=== PATIENT | female | born 1990 | race Caucasian/White ===

== ENCOUNTER 2020-08-08 11:55 | Day surgery (SDC) | payer BC ==
[2020-08-07 14:15] LABS: Absolute Lymphocytes (CBC) 2.2 K/uL (0.7-4.9); Basophils % 0.3 % (0-1.3); Hematocrit 40.4 % (36.0-45.0); RBC Red Blood Cell Count 5.04 M/uL (3.86-4.86)
--- OUTSIDE RECORDS SUMMARY | 2020-08-08 12:06 | XMS REPORT | Continuity of Care Document ---
:1990 Author Organization [facility] t Address [address] [place] [address] [address]. [address] [place] [address] Care Team Providers Name Role Phone Lab, Elan Saab I Attending Clinician Unavailable Problems This patient has no known problems. Allergies, Adverse Reactions, Alerts This patient has no known allergies or adverse reactions. Medications This patient has no known medications. Procedures This patient has no known procedures. Encounters Start End Encounter Admission Attending Care Care Encounter Source Date/Time Date/Time Type Type Clinicians Facility Department ID 2020-04-12 2020-04-12 Laboratory Lab, [facility] [id number] 10:08:37 10:28:37 Only Fam Pob I [facility] [id number] [place] [id number] [place] [phone] nal 044 [address] One Results This patient has no known results.
[2020-08-08 12:19] LABS: Specific Gravity >= 1.030 (1.005-1.030)
[2020-08-08] MEDS ORDERED: Ringers Lactate 1,000 ML IV ONE ×2 (12:30→18:11)
[2020-08-08] MEDS ORDERED: SCOPOLAMINE HYDROBROMIDE PATCH TD ONE ×2 (12:30→12:47)
[2020-08-08] MEDS: CEFAZOLIN/SWI 1gm 1 GM/10 ML SYR ONE ×3 (13:27→16:40)
[2020-08-08] MEDS: CEFAZOLIN/SWI 2gm 2 GM/20 ML SYR ONE ×3 (13:27→16:40)
[2020-08-08] MEDS ORDERED: IBUPROFEN 400 MG TAB ONE (14:40)
[2020-08-08] MEDS ORDERED: ONDANSETRON 4 MG/2 ML VIAL ONE ×3 (14:40→19:07)
[2020-08-08] MEDS ORDERED: propofoL 200 MG/20 ML VIAL IV ONE (15:54)
[2020-08-08] MEDS ORDERED: LIDOCAINE 2% MPF 5 ML VIAL ONE (15:54)
[2020-08-08] MEDS ORDERED: FENTANYL CITR 100 MCG/2 ML ONE (15:56)
[2020-08-08] MEDS ORDERED: ROCURONIUM 50 MG/5 ML VIAL IV ONE ×2 (15:56→18:17)
[2020-08-08] MEDS ORDERED: MIDAZOLAM HCL 2 MG/2 ML INJ ONE (15:57)
[2020-08-08] MEDS ORDERED: BUPIVACAINE 0.25% PF 30 ML VIAL ONE (16:15)
[2020-08-08] MEDS ORDERED: dexAMETHasone 4 MG/ML VIAL ONE (17:04)
[2020-08-08] MEDS ORDERED: KETOROLAC 30 MG/ML INJ ONE (17:05)
[2020-08-08] MEDS ORDERED: GLYCOPYRROLATE 0.2 MG/ML SYR ONE ×3 (17:06→17:26)
[2020-08-08] MEDS ORDERED: NEOSTIGMINE 1 MG/ML -5 ML ONE (17:26)
[2020-08-08] MEDS ORDERED: MORPHINE 10 MG/ML VIAL ONE (18:18)
[2020-08-08] MEDS ORDERED: HYDROMORPHONE HCL 1 MG/ML INJ ONE (19:06)
[2020-08-08] MEDS ORDERED: CODEINE 30MG/APAP 300MG TAB ONE (19:59)
[2020-08-08 20:22] VITALS: BP 106/60; TEMP 97.2; O2SAT 99
--- NOTE | 2020-08-10 00:07 | OP ---
Date of Procedure: 08/08/2020 Surgeon: Marcia Can MD Bowling Ball Finisher: Gertrudis Torres. Preoperative Diagnoses: Pelvic pain, left lower quadrant pain, left adnexal mass. Postoperative Diagnoses: Pelvic pain, left large hematosalpinx with possible necrosis and sigmoid ad hesions. Procedures Performed: Diagnostic laparoscopy, left salpingectomy, extensive lysis of sigmoid adhesio ns which took more than 50% of the case in diagnostic hysteroscopy. Anesthesia: General endotracheal. Estimated Blood Loss: Minimal. Specimens: Left tube. Complications: None. Drains: The patient's condition is stable. Findings: On diagnostic hysteroscopy, uterus was anteflexed, the cavity unremarkable. On laparoscop y, there was a necrotic and dilated distal left tube with hematosalpinx adhesions to the sigmoid colo n as well as to the left lateral wall and the ovary. The adhesions to the ovary were removed. The a dhesions of the sigmoid were also detached. Once the tube was discerned and was completely well sepa rated, it was all removed and sent for permanent pathology. Both ovaries were completely unremarkabl e. Right tube normal. Uterus unremarkable. No evidence of any endometriosis. The patient is a 30-year-old female, presented with pelvic pain, on an IUD. Relatively, had intermit tent pain which was mild and tolerable since the insertion 6 months ago; however, suddenly on July 19 she presented to the office with pelvic pain. She was treated for PID after removal of the IUD with antibiotics. Two weeks later on when she was seen in the office by my nurse practitioner, her pain was still significant. Transvaginal ultrasound was performed. The left ovary appeared to b e slightly larger, but no evidence of any mass, no evidence of any tubo-ovarian abscess. So she was seen back in a day and a CT scan was ordered and this showed a possible left adnexal mass over 7.7 cm. So, given the patient's pain although the pain has significantly gotten better, she sti ll had enough pain to have some peritoneal signs. No fever. White cell count was normal. BMP was n ormal. So, the patient was given the results on the same dose for CT and was advised that she should call for any acute increase in pain. All the torsion precautions were given and then scheduled for laparoscopy on Friday. She was electively brought into the hospital on that day. Urine test was negative. She wa s taken back to the OR. Ancef 3 g were given. SCDs were placed in supine. The patient was placed i n a supine fashion on the operating table and general anesthesia was given, placed in a dorsal lithot lucila position using Simba stirrups. Arms were tucked by the side. After time-out was done, abdomen, vulva, vagina, and perineum were prepped and draped in a sterile fashion. Woodson was placed to drain the bladder. Speculum was placed to expose the cervix and difficulty to insert uterine manipulator, so the sponge on a stick was used here. 1 cm infraumbilical incision was made with a scalpel using the open laparoscopy technique. Fascia wa s incised and tagged with 0 Vicryl sutures. Peritoneum was entered bluntly. S-retractor was placed. After insufflating the peritoneal cavity with CO2, the patient was placed in Trendelenburg. Upper abdominal surface was completely unremarkable. A 5 mm left lower quadrant and 5 mm suprapubic ports were placed first and in the right lower quadrant 5 port was placed as well. On entry, there was a s wollen left adnexal mass with evidence of chronic venous stasis adhered to the omentum and the sigmoi d colon. Once the ports were all placed, then the omental adhesions were taken down with gentle manoj p and blunt dissection with the tip of the suction as well as graspers. Once this was done, then the adhesions of the sigmoid colon were seen all the way from the natural attachment all the way down to the entire upper half of the pelvis in the lateral sidewall. There were no discernible ovaries seen , appeared to be a large tuboovarian mass. However, after systematic dissection and separation of th e epiploica of the colon and the sigmoid colon itself from the sidewall at the level of the ureter at the pelvic brim, all these were gently. The lateral wall was opened up by opening up the peritoneum lateral to the tube. Once this dissection was done and I was able to get up to the area b etween the round ligament and the tube, then the tube was isolated, then on the medial aspect as the tubal adhesions were taken down from the sigmoid, the fimbriated end was socked in and found within a large swollen necrotic tube. So, at this point, once I got the tube from its inferior adh esions, then the ovary was seen. Once the surface of the ovary was visualized and appeared to be nor mal, then stayed on the surface of the ovary and shaved the tube off along with the necrotic material , then the rest of the tube was dissected off from the ovary. The ovary appeared to be completely in tact. So, the fimbriated end from the lateral broad ligament was and cut out with the help of the LigaSure and the distal half of the tube was removed. The proximal half of the left tube christy eared to be completely dilated and normal-appearing; however, this was also removed due to the concer n that this could have scar tissue in pathology and could be a potential site for future ectopic, so this was removed as well. All the tissues were picked up and placed in an EndoCatch bag and the spec imen bag was set aside. Rest of the laparoscopy was completed. Good survey of the pelvic cavity. N o endometriosis. Tube and ovary on the right side normal. No other abnormal areas were seen and the sigmoid colon did not appear to have any diverticula. Once the tube was removed, the entire sidewal l appeared to be clean. Thorough suction evacuation was done after irrigation with copious amount of normal saline. Once this was done, there was good hemostasis. Then, the trocars were removed and g as was desufflated. The specimen was extracted through the umbilical trocar site after removing the trocar. Then, fascia at the umbilicus was closed with the help of 0 Vicryl sutures tied to each othe r and they were placed for tagging the edges and then all the rest of the fascial incisions were inje cted with 0.25% Marcaine at the beginning and at the end of the case. All the skin incision was clos ed with the help of interrupted 4-0 Vicryl sutures. Then went down below, wanted to make sure that t here was no evidence of any abnormal endometrial tissue, so diagnostic hysteroscopy with a SlimLine h ysteroscope was done by entering the cervical canal and under direct visualization, the uterine cavit y was entered. Normal saline was used for distention medium. No evidence of any abnormal abnormalit ies here and both cornual ends appeared to be normal. Scope was removed. All the instruments were r emoved. Woodson was removed. Instrument, needle, and sponge counts were correct at the end of the lillian e. The patient tolerated the procedure well. She was recovered from anesthesia and taken to PACU in stable condition. So, at the end of the case, there were periovarian adhesions that were taken down as well as the tube. Estimated Blood Loss: Minimal. Urine Output: More than 100. MARTINE/MOHAN Voice ID: [id number] Report ID: [id number]
== END 2020-08-08 20:20 | disposition home or self-care (01) ==
LOC: OR 11:55
PROVIDERS: ATTEND Obstetrics & Gynecology
PROC: 0UN14ZZ Release Left Ovary, Percutaneous Endoscopic Approach (ICD-10-PCS; 2020-08-08)
PROC: 0UT64ZZ Resection of Left Fallopian Tube, Percutaneous Endoscopic Approach (ICD-10-PCS; 2020-08-08)
PROC: 0UJD8ZZ Inspection of Uterus and Cervix, Via Natural or Artificial Opening Endoscopic (ICD-10-PCS; 2020-08-08)
PROC: 0DNN4ZZ Release Sigmoid Colon, Percutaneous Endoscopic Approach (ICD-10-PCS; principal; 2020-08-08 13:30)
DX: N83.292 Other ovarian cyst, left side (principal); N73.6 Female pelvic peritoneal adhesions (postinfective); I10 Essential (primary) hypertension; F17.200 Nicotine dependence, unspecified, uncomplicated; Z20.828 Contact with and (suspected) exposure to other viral communicable diseases
CPT/HCPCS: 44180; 58660; 58661; 58555; 85025; 36415; 86900; 86850; 81025; 86901; 88305; U0002; J2704; J1100; J2250; J3010; J1170; J2710; J0690 ×2; J7120 ×2; J2405 ×3

== ENCOUNTER 2021-04-14 13:50 | Emergency (ER) | payer BC ==
[2021-04-14 15:40] LABS: Urine Blood Negative (Negative); Urine Glucose Negative (Negative); Urine Protein Trace (Negative); Urine Specific Gravity 1.025 (1.005-1.030); Urine pH 6.5 (5.0-7.0)
--- OUTSIDE RECORDS SUMMARY | 2021-04-14 15:42 | XMS REPORT | Continuity of Care Document ---
:1990 Author Organization [facility] t Address [address] [place] [address] [address]. [address] [place] [address] Care Team Providers Name Role Phone Lab, Elan Pob I Attending Clinician Unavailable Problems This patient has no known problems. Allergies, Adverse Reactions, Alerts This patient has no known allergies or adverse reactions. Medications This patient has no known medications. Procedures This patient has no known procedures. Encounters Start End Encounter Admission Attending Care Care Encounter Source Date/Time Date/Time Type Type Clinicians Facility Department ID 2020-04-12 2020-04-12 Laboratory Lab, [facility] [id number] 10:08:37 10:28:37 Only Fam Pob I [facility] [id number] [place] [id number] [place] [phone] nal 044 [address] One Results This patient has no known results.
[2021-04-14 16:25] LABS: Urine Specific Gravity/Preg 1.025 (1.005-1.030)
[2021-04-14] MEDS ORDERED: dexAMETHasone 10 MG/ML VIAL ONE (17:09)
[2021-04-14] MEDS ORDERED: KETOROLAC 30 MG/ML INJ ONE (17:10)
--- NOTE | 2021-04-14 18:32 | RAD REPORT ---
EXAM DESCRIPTION: RAD - Lumbar Spine 3 Views - 04/14/2021 5:52 pm CLINICAL HISTORY: fall Radiculopathy COMPARISON: <Comparisons> FINDINGS: Vertebral body heights appear maintained. No compression fracture noted. Disc spaces are m aintained. Bilateral spondylolysis at L5-S1 with mild anterolisthesis. IMPRESSION: Bilateral spondylolysis with mild anterolisthesis L5-S1.
--- NOTE | 2021-04-14 18:40 | EDPHYS ---
Physician Documentation [facility] Name: Arline Carcamo Age: 30 yrs Sex: Female : 1990 Arrival Date: 04/14/2021 Time: 13:52 Bed Hall20 Private MD: ED Physician Prakash Denney HPI: 04/14 16:53 This 30 yrs old Female presents to ER via Ambulatory with complaints of Back jmm Pain. 16:53 The patient presents with pain that is acute. Onset: The symptoms/episode jmm began/occurred acutely, last night. The pain radiates to the right hip. Associated signs and symptoms: Pertinent negatives: abdominal pain, chest pain, fever, headache, hematuria, incontinence, nausea, numbness, tingling, urinary retention, vomiting, weakness. Modifying factors: The patient symptoms are alleviated by nothing, the patient symptoms are aggravated by any movement. This is a 30 year old female with a history of anxiety, htn that presents to the ED with complaints of lower back pain which radiates to the right hip. States she was tackled covering home base while playing baseball. . 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 - Social history:: Smoking status: Patient reports the use of cigarette tobacco products, denies chronic smoking, but will smoke occasionally, Reported history of juuling and/or vaping. Patient uses alcohol, occasionally. ROS: 16:53 Constitutional: Negative for fever, chills, and weight loss, Cardiovascular: Negative jmm for chest pain, palpitations, and edema, Respiratory: Negative for shortness of breath, cough, wheezing, and pleuritic chest pain. 16:53 Back: Positive for pain with movement. 16:53 All other systems are negative. Exam: 16:53 Constitutional: This is a well developed, well nourished patient who is awake, alert, jmm and in no acute distress. Head/Face: atraumatic. Eyes: EOMI, no conjunctival erythema appreciated ENT: Moist Mucus Membranes Neck: Trachea midline, Supple Chest/axilla: Normal chest wall appearance and motion. Cardiovascular: Regular rate and rhythm. No edema appreciated Respiratory: Normal respirations, no respiratory distress appreciated Abdomen/GI: Non distended, soft 16:53 Skin: General appearance color normal MS/ Extremity: Moves all extremities, no obvious deformities appreciated, no edema noted to the lower extremities Neuro: Awake and alert, normal gait Psych: Behavior is normal, Mood is normal, Patient is cooperative and pleasant 16:53 Back: no midline tenderness appreciated, right sided lumbar back pain on palpation. Vital Signs: 14:37 BP 134 / 86; Pulse 69; Resp 20; Temp 98.5(O); Pulse Ox 100% on R/A; Weight 129.05 kg kg (M); Height 5 ft. 9 in. (175.26 cm) (R); Pain 9/10; 14:37 Body Mass Index 42.01 (129.05 kg, 175.26 cm) kg MDM: 16:46 Patient medically screened. [facility] 18:37 Data reviewed: vital signs, nurses notes. Counseling: I had a detailed discussion with noah the patient and/or guardian regarding: the historical points, exam findings, and any diagnostic results supporting the discharge/admit diagnosis, radiology results, the need for outpatient follow up, to return to the emergency department if symptoms worsen or persist or if there are any questions or concerns that arise at home. ED course: Most likely sciatica. I do not suspect cord compression or cauda equina. Patient advised to follow up with pcp and otherwise given strict return precautions. patient understood and agrees with the plan of care. . 04/14 15:39 Order name: Urine Dipstick-Ancillary; Complete Time: 16:51 EDMS 04/14 15:41 Order name: Urine --Ancillary (enter results); Complete Time: 16:51 eb 04/14 16:46 Order name: Lumbar Spine (3 Views) XRAY; Complete Time: 18:35 [facility] Administered Medications: 16:53 Drug: Ketorolac 30 mg Route: IM; Site: right deltoid; sv 17:25 Follow up: Response: No adverse reaction sv 16:53 Drug: Decadron (dexamethasone) 10 mg Route: IM; Site: left deltoid; sv 17:25 Follow up: Response: No adverse reaction sv 18:34 Drug: Valium (diazepam) 5 mg Route: PO; sv 19:12 Follow up: Response: No adverse reaction sv Disposition Summary: 04/14/21 18:39 Discharge Ordered Location: Home [facility] Condition: Stable [facility] Diagnosis - Sciatica [facility] Followup: [facility] - With: Private Physician - When: 2 - 3 days - Reason: Recheck today's complaints, Continuance of care, Re-evaluation by your physician Followup: [facility] - With: Michael Mac MD - When: 2 - 3 days - Reason: Recheck today's complaints, Continuance of care, Re-evaluation by your physician Followup: [facility] - With: Gómez Collado DO - When: 2 - 3 days - Reason: Recheck today's complaints, Continuance of care, Re-evaluation by your physician Followup: [facility] - With: Kamilla Polo MD - When: 2 - 3 days - Reason: Recheck today's complaints, Continuance of care, Re-evaluation by your physician Followup: [facility] - With: Yun Jackson DO - When: 2 - 3 days - Reason: Recheck today's complaints, Continuance of care, Re-evaluation by your physician Discharge Instructions: - Discharge Summary Sheet [facility] - Sciatica [facility] - Sciatica [facility] Forms: - Medication Reconciliation Form [facility] - Thank You Letter [facility] - Antibiotic Education [facility] - Prescription Opioid Use [facility] Prescriptions: - Ibuprofen 800 mg Oral Tablet - take 1 tablet by ORAL route every 8 hours As needed take with food; 30 tablet; [facility] Refills: 0, Product Selection Permitted - orphenadrine citrate 100 mg Oral Tablet Sustained Release - take 1 tablet by ORAL route 2 times per day As needed; 20 tablet; Refills: 0, [facility] Product Selection Permitted Addendum: 04/16/2021 13:43 Co-signature as Attending Physician, Prakash Denney MD I agree with the assessment and k dr plan of care. Signatures: Dispatcher [employer] Therese Hendrickson, RN RN Prakash Sun MD MD kdr Mickail, Joel, PA PA jmm Graham, Kristen, RN RN kg
--- NOTE | 2021-04-14 18:40 | ER ---
Nurse's Notes [facility] Name: Arline Carcamo Age: 30 yrs Sex: Female : 1990 Arrival Date: 04/14/2021 Time: 13:52 Bed Hall20 [facility] MD: Diagnosis: Sciatica Presentation: 04/14 14:37 Chief complaint: Patient states: Lower back pain, primarily on the right side. Pt was kg playing softball yesterday 04/13 and was hit on the legs and twisted her body. She denies falling or hitting head. Coronavirus screen: Client denies travel out of the [place] in the last 14 days. At this time, unable to obtain information related to travel outside the [place] At this time, the client does not indicate any symptoms associated with coronavirus-19. Ebola Screen: Patient negative for fever greater than or equal to 101.5 degrees Fahrenheit, and additional compatible Ebola Virus Disease symptoms Patient denies exposure to infectious person. Patient denies travel to an Ebola-affected area in the 21 days before illness onset. Initial Sepsis Screen: Does the patient meet any 2 criteria? No. Patient's initial sepsis screen is negative. Does the patient have a suspected source of infection? No. Patient's initial sepsis screen is negative. Risk Assessment: Do you want to hurt yourself or someone else? Patient reports no desire to harm self or others. Onset of symptoms was April 13, 2021 at 21:30. 14:37 Method Of Arrival: Ambulatory kg 14:37 Acuity: PAT 4 kg Triage Assessment: 14:40 General: Appears uncomfortable, Behavior is calm, cooperative, appropriate for age, kg quiet. Pain: Complains of pain in lumbar area, left low back and right low back. 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 - Social history:: Smoking status: Patient reports the use of cigarette tobacco products, denies chronic smoking, but will smoke occasionally, Reported history of juuling and/or vaping. Patient uses alcohol, occasionally. Screenin:45 Abuse screen: Denies threats or abuse. Denies injuries from another. Nutritional kg screening: No deficits noted. Tuberculosis screening: No symptoms or risk factors identified. Fall Risk None identified. No fall in past 12 months (0 pts). No secondary diagnosis (0 pts). No IV (0 pts). Ambulatory Aid- None/Bed Rest/Nurse Assist (0 pts). Gait- Normal/Bed Rest/Wheelchair (0 pts) Mental Status- Oriented to own ability (0 pts). Total Balderrama Fall Scale indicates No Risk (0-24 pts). Assessment: 16:53 General: Appears in no apparent distress. uncomfortable, well developed, Behavior is sv calm, cooperative, appropriate for age. Pain: Complains of pain in lumbar area Pain currently is 9 out of 10 on a pain scale. Neuro: Level of Consciousness is awake, alert, obeys commands, Oriented to person, place, time, situation, Gait is steady. Respiratory: Respiratory effort is even, unlabored. 19:11 Reassessment: Patient appears in no apparent distress at this time. No changes from sv previously documented assessment. Patient and/or family updated on plan of care and expected duration. Pain level reassessed. Patient is alert, oriented x 3, equal unlabored respirations, skin warm/dry/pink. Vital Signs: 14:37 BP 134 / 86; Pulse 69; Resp 20; Temp 98.5(O); Pulse Ox 100% on R/A; Weight 129.05 kg kg (M); Height 5 ft. 9 in. (175.26 cm) (R); Pain 9/10; 14:37 Body Mass Index 42.01 (129.05 kg, 175.26 cm) kg ED Course: 13:52 Patient arrived in ED. ds1 14:40 Triage completed. kg 14:45 Arm band placed on right wrist. kg 14:46 Patient has correct armband on for positive identification. kg 15:41 Urine collected: clean catch specimen, cloudy. mh5 16:00 Kal Cutler PA is PHCP. [facility] 16:00 Prakash Denney MD is Attending Physician. jmm 16:53 Awaiting for x-ray. sv 17:47 Lumbar Spine (3 Views) XRAY In Process Unspecified. EDMS 18:55 Michael Mac MD is Referral Physician. jmm 18:55 Gómez Collado DO is Referral Physician. jmm 18:55 Kamilla Polo MD is Referral Physician. jmm 18:56 Yun Jackson DO is Referral Physician. jmm 19:11 No provider procedures requiring assistance completed. Patient did not have IV access sv during this emergency room visit. Administered Medications: 16:53 Drug: Ketorolac 30 mg Route: IM; Site: right deltoid; sv 17:25 Follow up: Response: No adverse reaction sv 16:53 Drug: Decadron (dexamethasone) 10 mg Route: IM; Site: left deltoid; sv 17:25 Follow up: Response: No adverse reaction sv 18:34 Drug: Valium (diazepam) 5 mg Route: PO; sv 19:12 Follow up: Response: No adverse reaction sv Outcome: 18:39 Discharge ordered by MD. [facility] 19:11 Discharged to home ambulatory. sv 19:11 Condition: stable 19:11 Discharge instructions given to patient, Instructed on discharge instructions, follow up and referral plans. medication usage, Demonstrated understanding of instructions, follow-up care, medications, Prescriptions given X 2. 19:12 Patient left the ED. sv Signatures: Dispatcher [employer] Therese Hendrickson, RN RN Kal Cutler PA PA Margarita Corado ds1 Robyn Cota 5 Nedra Carlos RN RN kg
[2021-04-14] MEDS ORDERED: DIAZEPAM 5 MG TABLET ONE (18:53)
[2021-04-14 19:19] VITALS: BP 134/86; TEMP 98.5; O2SAT 100
== END 2021-04-14 19:12 | disposition home or self-care (01) ==
LOC: ER 13:50
DX: M54.30 Sciatica, unspecified side (principal); F41.9 Anxiety disorder, unspecified; I10 Essential (primary) hypertension; F17.210 Nicotine dependence, cigarettes, uncomplicated; Z88.0 Allergy status to penicillin
CPT/HCPCS: 81025; 81003; 72100; 96372; 99284; J1100

== ENCOUNTER 2022-08-12 10:08 | Emergency (ER) | payer BC ==
--- OUTSIDE RECORDS SUMMARY | 2022-08-12 10:13 | XMS REPORT | Continuity of Care Document ---
:1990 Author Organization [facility] t Address [address] [place] [address] Care Team Providers Name Role Phone Lab, [facility] Fam Pob I Attending Clinician Unavailable GABRIELE LR Attending Clinician Unavailable Payers Payer Name Policy Type Policy Number Effective Date Expiration Date S [facility] - [id number] 2019 00:00:00 OUT OF STATE Problems This patient has no known problems. Allergies, Adverse Reactions, Alerts Allergy Allergy Status Severity Reaction(s) Onset Inactive Treating Comm ents Source Name Type Date Date Clinician NO KNOWN Drug Active [facility] ALLERGIE [facility] Medications This patient has no known medications. Procedures This patient has no known procedures. Encounters Start End Encounter Admission Attending Care Care Encounter Source Date/Time Date/Time Type Type Clinicians Facility Department ID 2020-04-12 2020-04-12 Laboratory Lab, [facility] [id number] 10:08:37 10:28:37 Only Fam Pob I [facility] [id number] [place] [id number] [place] [phone] nal 044 [address] 2020-04-12 2020-04-12 Outpatient R ADELINE [facility] [id number] 10:20:00 10:20:00 GABRIELE quiroga [facility] Results This patient has no known results.
[2022-08-12 10:43] LABS: Urine Blood 2+ (Negative); Urine Glucose Negative (Negative); Urine Protein 2+ (Negative); Urine Specific Gravity 1.015 (1.005-1.030)
[2022-08-12 11:01] LABS: Urine Mucus Slight /HPF (None Seen); Urine RBC 21-50 /HPF (None Seen)
[2022-08-12 11:08] LABS: Urine Specific Gravity/Preg 1.015 (1.005-1.030)
--- NOTE | 2022-08-12 11:16 | RAD REPORT ---
EXAM DESCRIPTION: CT - Stone Protocol - 08/12/2022 11:01 am CLINICAL HISTORY: Abdominal pain. Flank pain COMPARISON: 2019 TECHNIQUE: Computed axial tomography of the abdomen pelvis was obtained without oral or IV contrast. Lack of IV and oral contrast limits evaluation of solid organs, appendix, bowel, and vessels. Zapata l reformatted images were obtained and reviewed. All CT scans are performed using dose optimization technique as appropriate and may include automated exposure control or mA/KV adjustment according to patient size. FINDINGS: A renal calculus is not seen. An ureteral calculus is not noted. A bladder calculus is not present. The liver, spleen, pancreas and adrenals appear grossly normal There is no evidence of diverticulitis. The appendix appears normal Slight anterior subluxation L5 on S1. Spondylolysis L5 Small umbilical hernia. No adnexal mass IMPRESSION: Negative for a genitourinary calculus
[2022-08-12] MEDS ORDERED: KETOROLAC 30 MG/ML INJ ONE (11:23)
[2022-08-12 11:26] LABS: Absolute Lymphocytes (CBC) 2.1 K/uL (0.7-4.9); Hematocrit 37.1 % (36.0-45.0); Lymphocytes % 14.9 % (15.3-44.8); MPV 8.1 fL (7.6-11.3); RBC Red Blood Cell Count 4.58 M/uL (3.86-4.86)
[2022-08-12 11:39] LABS: Potassium 3.7 mmol/L (3.5-5.1)
--- NOTE | 2022-08-12 11:45 | EDPHYS ---
Physician Documentation [facility] Name: Arline Carcamo Age: 32 yrs Sex: Female : 1990 Arrival Date: 08/12/2022 Time: 10:12 Bed 13 Private MD: ED Physician Prakash Denney HPI: 08/12 11:58 This 32 yrs old Female presents to ER via Ambulatory with complaints of Urinary Problem.kb 11:58 The patient presents with flank pain, on the left, urinary symptoms, frequency. Onset: kb The symptoms/episode began/occurred last night. Modifying factors: The symptoms are alleviated by nothing, the symptoms are aggravated by nothing. Associated signs and symptoms: Pertinent positives: urinary frequency. Severity of symptoms: At their worst the symptoms were mild, moderate, in the emergency department the symptoms are unchanged. The patient has not experienced similar symptoms in the past. The patient has not recently seen a physician. Pt reports urinary frequency, suprapubic discomfort and left flank pain that started last night. 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 - Social history:: Smoking status: Patient denies any tobacco usage or history of. ROS: 11:58 Constitutional: Negative for fever, chills, and weight loss. kb 11:58 Abdomen/GI: Positive for abdominal pain, of the suprapubic area. 11:58 : Positive for urinary symptoms, flank pain, urinary frequency. 11:58 All other systems are negative. Exam: 11:57 Constitutional: This is a well developed, well nourished patient who is awake, alert, kb and in no acute distress. Head/Face: Normocephalic, atraumatic. ENT: Moist Mucous membranes Cardiovascular: Regular rate and rhythm with a normal S1 and S2. No gallops, murmurs, or rubs. No pulse deficits. Respiratory: Respirations even and unlabored. No increased work of breathing. Talking in full sentences Abdomen/GI: Soft, non-tender. No distention Skin: Warm, dry with normal turgor. Normal color. MS/ Extremity: Pulses equal, no cyanosis. Neurovascular intact. Full, normal range of motion. Neuro: Awake and alert, GCS 15, oriented to person, place, time, and situation. Moves all extremities. Normal gait. Psych: Awake, alert, with orientation to person, place and time. Behavior, mood, and affect are within normal limits. 11:57 Back: CVA tenderness, that is mild, is noted on the left. Vital Signs: 10:26 Pulse 85; Resp 16; Pulse Ox 97% on R/A; iw 10:28 BP 146 / 92; Pulse 86; iw 11:58 BP 140 / 86; Pulse 82; Resp 18; Pulse Ox 99% on R/A; ko1 MDM: 10:25 Patient medically screened. kb 11:57 Data reviewed: vital signs, nurses notes. Data interpreted: Pulse oximetry: on room air kb is 97 %. Interpretation: normal. Counseling: I had a detailed discussion with the patient and/or guardian regarding: the historical points, exam findings, and any diagnostic results supporting the discharge/admit diagnosis, lab results, radiology results, the need for outpatient follow up, a family practitioner, to return to the emergency department if symptoms worsen or persist or if there are any questions or concerns that arise at home. 08/12 10:27 Order name: Urine Microscopic Only; Complete Time: 11:07 kb 08/12 10:43 Order name: Urine Dipstick-Ancillary; Complete Time: 10:47 EDMS 08/12 10:44 Order name: Urine --Ancillary (enter results); Complete Time: 11:17 bd 08/12 10:48 Order name: CBC with Diff; Complete Time: 11:32 kb 08/12 10:48 Order name: Basic Metabolic Panel; Complete Time: 11:40 kb 08/12 11:04 Order name: Urine Culture EDGA 08/12 10:27 Order name: Urine Dipstick-Ancillary (obtain specimen); Complete Time: 10:56 kb 08/12 10:27 Order name: Urine Test (obtain specimen); Complete Time: 10:57 kb 08/12 10:48 Order name: CT Stone Protocol; Complete Time: 11:19 kb 08/12 10:48 Order name: IV Start; Complete Time: 11:19 kb Administered Medications: 11:33 Drug: Ketorolac 15 mg Route: IVP; Site: left hand; ko1 11:55 Drug: Cipro (ciprofloxacin) 500 mg Route: PO; ko1 Disposition: 14:46 Co-signature as Attending Physician, Prakash Denney MD I agree with the assessment and kdr plan of care. Disposition Summary: 08/12/22 11:44 Discharge Ordered Location: Home kb Condition: Stable kb Diagnosis - UTI/ Urinary tract infection, site not specified kb Followup: kb - With: Emergency Department - When: As needed - Reason: Worsening of condition Followup: kb - With: Private Physician - When: 2 - 3 days - Reason: Recheck today's complaints, Continuance of care, Re-evaluation by your physician Discharge Instructions: - Discharge Summary Sheet kb - Urinary Tract Infection, Adult, [id number] kb Forms: - Medication Reconciliation Form kb - Thank You Letter kb - Antibiotic Education kb - Prescription Opioid Use kb Prescriptions: - Cipro 500 mg Oral Tablet - take 1 tablet by ORAL route every 12 hours for 7 days; 14 tablet; Refills: 0, kb Product Selection Permitted Signatures: Dispatcher [employer] EDShelbie Ward, [employer]-Prakash Duarte MD MD kdr Ana Buchanan, DIONI RN iw eYsenia Black RN RN ko1 Corrections: (The following items were deleted from the chart) 10:28 10:27 PMHx: Diabetes mellitus; [facility]
--- NOTE | 2022-08-12 11:45 | ER ---
Nurse's Notes [facility] Name: Arline Carcamo Age: 32 yrs Sex: Female : 1990 Arrival Date: 08/12/2022 Time: 10:12 Bed 13 Private MD: Diagnosis: UTI/ Urinary tract infection, site not specified Presentation: 08/12 10:26 Chief complaint: Patient states: back pain, left flank pain, pain with urination , iw bladder pain , started last night. Coronavirus screen: At this time, the client does not indicate any symptoms associated with coronavirus-19. Ebola Screen: Patient negative for fever greater than or equal to 101.5 degrees Fahrenheit, and additional compatible Ebola Virus Disease symptoms Patient denies exposure to infectious person. Patient denies travel to an Ebola-affected area in the 21 days before illness onset. No symptoms or risks identified at this time. Initial Sepsis Screen: Does the patient meet any 2 criteria? No. Patient's initial sepsis screen is negative. Does the patient have a suspected source of infection? No. Patient's initial sepsis screen is negative. Risk Assessment: Do you want to hurt yourself or someone else? Patient reports no desire to harm self or others. Onset of symptoms was August 11, 2022. 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 - Social history:: Smoking status: Patient denies any tobacco usage or history of. Screenin:32 Abuse screen: Denies threats or abuse. Denies injuries from another. Nutritional ko1 screening: No deficits noted. Tuberculosis screening: No symptoms or risk factors identified. Fall Risk None identified. Assessment: 10:31 General: Appears in no apparent distress. uncomfortable, Behavior is calm, cooperative, ko1 appropriate for age. Pain:. Neuro: No deficits noted. Cardiovascular: No deficits noted. Respiratory: No deficits noted. GI: No deficits noted. : Reports pain flank(s), with urination. EENT: No deficits noted. Derm: No deficits noted. Musculoskeletal: No deficits noted. 10:32 Pain: Complains of pain in suprapubic area. ko1 Vital Signs: 10:26 Pulse 85; Resp 16; Pulse Ox 97% on R/A; iw 10:28 BP 146 / 92; Pulse 86; iw 11:58 BP 140 / 86; Pulse 82; Resp 18; Pulse Ox 99% on R/A; ko1 ED Course: 10:12 Patient arrived in ED. mr 10:25 Shelbie Wilder FNP-C is PHCP. kb 10:25 Prakash Denney MD is Attending Physician. kb 10:27 Triage completed. iw 10:28 Arm band placed on. iw 10:30 Yesenia Black, DIONI is Primary Nurse. ko1 10:32 Patient has correct armband on for positive identification. Bed in low position. Call ko1 light in reach. Side rails up X 1. 10:57 Urine Microscopic Only Sent. ko1 11:03 CT Stone Protocol In Process Unspecified. EDMS 11:15 Inserted saline lock: 22 gauge in left hand, using aseptic technique. Blood collected. ko1 11:15 IV discontinued, intact, bleeding controlled, No redness/swelling at site. Pressure ko1 dressing applied. 11:19 Basic Metabolic Panel Sent. ko1 11:19 CBC with Diff Sent. ko1 11:58 Client placed on continuous cardiac and pulse oximetry monitoring. NIBP monitoring ko1 applied. 12:05 No provider procedures requiring assistance completed. ko1 Administered Medications: 11:33 Drug: Ketorolac 15 mg Route: IVP; Site: left hand; ko1 11:55 Drug: Cipro (ciprofloxacin) 500 mg Route: PO; ko1 Medication: 10:32 VIS not applicable for this client. ko1 Outcome: 11:15 Discharged to home ambulatory, with family. ko1 11:15 Condition: good 11:15 Discharge instructions given to patient, family, Instructed on discharge instructions, follow up and referral plans. medication usage, Demonstrated understanding of instructions, follow-up care, medications, Prescriptions given X 1. 11:44 Discharge ordered by . sweetie 12:07 Patient left the ED. ko1 Signatures: Dispatcher [employer] EDShelbie Ward, SHARMAINE GOYAL-Graciela Ho Irene, RN RN Yesenia Dent RN RN ko1 Corrections: (The following items were deleted from the chart) 10:28 10:27 PMHx: Diabetes mellitus; [facility]
[2022-08-12] MEDS ORDERED: CIPROFLOXACIN HCL 500 MG TAB ONE (11:55)
[2022-08-12 12:18] VITALS: BP 140/86; O2SAT 99
== END 2022-08-12 12:07 | disposition home or self-care (01) ==
LOC: ER 10:08
DX: N39.0 Urinary tract infection, site not specified (principal); I10 Essential (primary) hypertension; Z88.0 Allergy status to penicillin
CPT/HCPCS: 36415; 74176; 76377; 80048; 81003; 81015; 81025; 85025; 87077; 87086; 87088; 87186; 96374; 99284